=== PATIENT | male | born 1955 | race Caucasian/White ===

== ENCOUNTER 2019-01-06 20:13 | Emergency (ER) | payer OTHER ==
[~2019-01-06] VITALS: Ht 175.3 cm; Wt 109.1 kg
[2019-01-06] MEDS ORDERED: RAMI1CAP26 PO (20:19)
[2019-01-06] MEDS ORDERED: CLON1TAB8 PO (20:19)
[2019-01-06] MEDS ORDERED: TRAZ-186 PO (20:19)
[2019-01-06] MEDS ORDERED: PERCOCET 5MG/325MG TAB PO ONE ×2 (20:30→22:15)
[2019-01-06] MEDS ORDERED: KETOROLAC 30 MG/ML VIAL (J1885) IM ONE (21:00)
[2019-01-06] MEDS ORDERED: KETOROLAC 60 MG/2 ML VIAL (J1885) IM ONE (21:15)
[2019-01-06] MEDS ORDERED: INFANRIX VACCINE SYRINGE (DIPHTH/TET/ACEL PERTUS PEDIATRIC) (CPT 90700) IM ONE (21:30)
[2019-01-06] MEDS ORDERED: ADACEL/BOOSTRIX VACCINE (DIPHTH/PERTUSS/ACELL/TETANUS)0.5ML SYR (90715) IM ONE (21:30)
[2019-01-06 22:10] VITALS: BP 172/81
[2019-01-06] MEDS ORDERED: PERC5TAB12 PO (22:10)
[2019-01-06] MEDS ORDERED: KEFL500C17 PO (22:11)
[2019-01-06] MEDS ORDERED: KETO10TAB PO (22:12)
[2019-01-06] MEDS ORDERED: CEPHALEXIN 500 MG CAP PO ONE (22:15)
--- NOTE | 2019-01-07 07:36 | REP ---
Clinical: Trauma. Crush injury. Technique: AP, lateral, bilateral oblique views of the right hand. Findings: Nondisplaced fracture involving the distal aspect of the third metacarpal bone. Overlying soft tissue swelling noted. No subcutaneous emphysema or radiodense foreign body. Impression: Nondisplaced fracture involving the distal aspect of the third metacarpal bone. Electronically Signed by Gerry Stanford MD 01/07/2019 07:27 A
== END 2019-01-06 22:22 | disposition home or self-care (01) ==
LOC: M ED 20:13
DX: S62.300A Unspecified fracture of second metacarpal bone, right hand, initial encounter for closed fracture (principal); W23.0XXA Caught, crushed, jammed, or pinched between moving objects, initial encounter; Y92.099 Unspecified place in other non-institutional residence as the place of occurrence of the external cause; Y93.9 Activity, unspecified; Y99.9 Unspecified external cause status; I10 Essential (primary) hypertension; Z79.899 Other long term (current) drug therapy
CPT/HCPCS: 73130; 90715; 96372; 99283; J1885